=== PATIENT | female | born 1995 | race Caucasian/White ===

== ENCOUNTER 2024-05-20 15:36 | Inpatient (IN) | payer OTHER ==
[2024-05-20 16:24] LABS: RETICULOCYTES 1.82 % (0.5-1.5)
[2024-05-20 16:52] LABS: URIC ACID 4.3 mg/dL (2.6-7.2)
[2024-05-20] MEDS ORDERED: ACETAMINOPHEN INJECTION 100 ML ONE (19:52)
[2024-05-20] MEDS: ACETAMINOPHEN 1000 MG/100 ML BAG IVPB ONE (19:55)
[2024-05-20] MEDS ORDERED: BETAMET ACET/BETAMET NA PH 30 MG/5 ML VIAL ONE (22:25)
[2024-05-20] MEDS ORDERED: ceFAZolin SODIUM 1 GM VIAL ONE (22:26)
[2024-05-20] MEDS ORDERED: CEFAZOLIN SODIUM 2 GM VIAL ONE (22:28)
[2024-05-20] MEDS: CEFAZOLIN SODIUM 2 GM in DEXTROSE 5%-WATER 100 ML IVPB ONE (22:36)
[2024-05-20] MEDS: BETAMET ACET/BETAMET NA PH 30 MG/5 ML VIAL IM ONE (22:38)
[2024-05-20] MEDS: ELECTROLYTE-148 SOLN 1,000 ML IV SCH (23:00)
[2024-05-20 23:20] LABS: BASO % 0.8 % (0-2.0); EOS % 0.5 % (0-4.5); HEMATOCRIT 30.5 % (32.4-45.2); HEMOGLOBIN 10.5 GM/dL (10.7-15.3); LYMPH % 19.7 % (8-40); MCH 30.6 pg (25.7-33.7); MCHC 34.3 g/dl (32.0-36.0); MEAN CELL VOLUME 89.3 fl (80-96); MEAN PLT VOLUME 8.2 fl (7.5-11.1); MONO % 4.5 % (3.8-10.2); NEUT % 74.5 % (42.8-82.8); PLATELET COUNT 212 10^3/uL (134-434); RBC 3.42 M/mm3 (3.60-5.2); RDW 12.7 % (11.6-15.6)
[2024-05-20] MEDS ORDERED: MAGNESIUM 4GM/H20 - 4 GM/100 ML IVPB IVPB ONE (23:21)
[2024-05-20] MEDS: MAGNESIUM 4GM/H20 - 4 GM/100 ML IVPB IVPB ONE (23:26)
[2024-05-20 23:29] LABS: INR 1.05 (0.83-1.09); PROTHROMBIN TIME (PATIENT) 11.6 SEC (9.7-13.0)
[2024-05-20 23:31] LABS: ACTIVATED PTT 26.3 SECONDS (25.2-36.5)
[2024-05-20 23:48] LABS: POTASSIUM 3.4 mmol/L (3.5-5.1)
[2024-05-20 23:49] LABS: CALCIUM 8.2 mg/dL (8.5-10.1)
[2024-05-20 23:50] LABS: BLOOD UREA NITROGEN 6.6 mg/dL (7-18)
[2024-05-20 23:53] LABS: CREATININE 0.6 mg/dL (0.55-1.3)
[2024-05-20] MEDS ORDERED: MAGNESIUM SULFATE 20GM/500ML - 20 GM/500 ML INFUS.BAG ONE (23:54)
[2024-05-21] MEDS: MAGNESIUM SULFATE 20GM/500ML - 20 GM/500 ML INFUS.BAG IV SCH
[2024-05-21 01:16] VITALS: BMI 28.8
[2024-05-21 01:23] LABS: URINE APPEARANCE CLEAR; URINE BILIRUBIN NEGATIVE (NEGATIVE); URINE COLOR AMBER; URINE GLUCOSE (UA) NEGATIVE (NEGATIVE); URINE KETONE 4+ (NEGATIVE)
[2024-05-21] MEDS ORDERED: AMPICILLIN SODIUM 1 GM VIAL ONE ×3 (01:23→16:18)
[2024-05-21 01:24] LABS: URINE LEUK ESTERASE NEGATIVE (NEGATIVE); URINE NITRITE NEGATIVE (NEGATIVE); URINE PROTEIN NEGATIVE (NEGATIVE)
[2024-05-21] MEDS: diphenhydrAMINE HCL 25 MG CAPSULE (FP) PO ONE (01:31)
[2024-05-21] MEDS: IRON SUCROSE INJECTION 100 MG in SODIUM CHLORIDE 95 ML IVPB ONE (02:20)
[2024-05-21] MEDS: AMPICILLIN - 1 GM in SODIUM CHLORIDE 100 ML IVPB SCH (04:30)
[2024-05-21] MEDS ORDERED: SODIUM CHLORIDE 100 ML IVPB ONE ×2 (08:31→16:18)
[2024-05-21] MEDS ORDERED: MAGNESIUM SULFATE 20GM/500ML - 20 GM/500 ML INFUS.BAG ONE (10:01)
[2024-05-21 10:48] LABS: MAGNESIUM 5.2 mg/dL (1.8-2.4)
[2024-05-21] MEDS ORDERED: AZITHROMYCIN IVPB 500 MG/250 ML BAG IVPB ONE (11:38)
[2024-05-21] MEDS: AZITHROMYCIN IVPB 500 MG/250 ML BAG IVPB ONE (11:47)
[2024-05-21] MEDS: PRENATAL VITAMINS W/ FOLIC ACID TABLET (FP) PO SCH (11:55)
[2024-05-21] MEDS ORDERED: ACETAMINOPHEN INJECTION 100 ML ONE (12:28)
[2024-05-21] MEDS: ACETAMINOPHEN 1000 MG/100 ML BAG IVPB ONE (12:32)
[2024-05-21] MEDS: ASPIRIN 81 MG CHEWABLE TABLETS PO SCH (13:32)
[2024-05-21 19:12] VITALS: TEMP 98.2
[2024-05-21] MEDS ORDERED: ACETAMINOPHEN/CAFFEINE/BUTALBITAL 1 TAB PO PRN (19:46)
[2024-05-21] MEDS: BETAMET ACET/BETAMET NA PH 30 MG/5 ML VIAL IM ONE (20:27)
[2024-05-21 20:52] VITALS: BP 125/79; PULSE 78; RESP 18
== END 2024-05-21 20:48 | disposition home or self-care (01) | DRG 563 ==
LOC: JDEL 15:36 → JLDR 21:20 → UNDOADMOB 21:20 → INTOOBSV 21:20 → JLDR 22:01 → OBSVTOIN 05-21 14:00 → J3W 05-21 15:25
PROVIDERS: ADMIT Obstetrics & Gynecology; ATTEND Obstetrics & Gynecology
DX: O60.03 Preterm labor without delivery, third trimester (principal); Z3A.34 34 weeks gestation of pregnancy; G43.909 Migraine, unspecified, not intractable, without status migrainosus
CPT/HCPCS: 36415; 59025; 80048; 81003; 82570; 82977; 83010; 83735; 84156; 84450; 84460; 84550; 85025; 85032; 85045; 85610; 85730; 86780; 86850; 86900; 86901; 87086; 96372; G0378; J0131; J1756

== ENCOUNTER 2024-06-21 02:20 | Inpatient (IN) | payer OTHER ==
[2024-06-21] MEDS: LABETALOL HCL 200 MG TABLET (FP) PO ONE (03:00)
[2024-06-21] MEDS ORDERED: LABETALOL HCL 200 MG TABLET (FP) ONE (03:02)
[2024-06-21 03:24] VITALS: BMI 29.0
[2024-06-21] MEDS: ELECTROLYTE-148 SOLN 1,000 ML IV SCH (03:30)
[2024-06-21] MEDS ORDERED: AMPICILLIN SODIUM 2 GM VIAL ONE (03:33)
[2024-06-21] MEDS: AMPICILLIN - 2 GM in SODIUM CHLORIDE 100 ML IVPB ONE (03:50)
[2024-06-21] MEDS: CITRIC ACID/SODIUM CITRATE 30 ML UNIT-DOSE CUP PO ONE (03:50)
[2024-06-21] MEDS: LABETALOL HCL 5 MG/1 ML (100MG/20 ML VIAL) IVPUSH ONE (03:57)
[2024-06-21] MEDS ORDERED: LABETALOL HCL 5 MG/1 ML (100MG/20 ML VIAL) IVPUSH PRN ×2 (03:57)
[2024-06-21] MEDS ORDERED: WITCH HAZEL 50% (TUCKS) 40 PAD/JAR PAD TP PRN (04:00)
[2024-06-21] MEDS ORDERED: METHYLERGONOVINE MALEATE 0.2 MG/1 ML AMP IM PRN (04:00)
[2024-06-21] MEDS ORDERED: BENZOCAINE 28 GM HEMORRHOIDAL OINTMENT TP PRN (04:00)
[2024-06-21] MEDS ORDERED: BENZOCAINE 20% 57 GM BOTTLE TP PRN (04:00)
[2024-06-21] MEDS ORDERED: morphine SULFATE/PF 1 MG/2 ML (2cc Syringe - QUVA) ONE (04:05)
[2024-06-21 04:08] LABS: ABSOLUTE IMMATURE GRANULOCYTES 0.03 x10^3/uL (0.0-0.031); BASOPHILS # 0.02 x10^3/uL (0.01-0.08); EOSINOPHIL % 0.6 % (0.7-5.8); EOSINOPHILS # 0.04 x10^3/uL (0.04-0.36); HEMATOCRIT 33.6 % (34.1-44.9); HEMOGLOBIN 11.3 g/dL (11.2-15.7); MCHC 33.6 g/dl (32.2-35.5); MEAN CELL VOLUME 89.8 fl (79.4-94.8); MEAN PLT VOLUME 9.9 fl (9.4-12.3); MONOCYTE # 0.53 x10^3/uL (0.24-0.86); MONOCYTE % 7.3 % (4.7-12.5); PLATELET COUNT 218 x10^3/uL (182-369); RDW 12.6 % (12.1-16.5)
[2024-06-21 04:11] LABS: INR 0.99 (0.83-1.09); POTASSIUM 4.1 mmol/L (3.5-5.1); PROTHROMBIN TIME (PATIENT) 10.8 SEC (9.7-13.0)
[2024-06-21 04:12] LABS: BLOOD UREA NITROGEN 7.3 mg/dL (7-18)
[2024-06-21 04:13] LABS: CALCIUM 9.1 mg/dL (8.5-10.1)
[2024-06-21 04:14] LABS: ACTIVATED PTT 26.9 SECONDS (25.2-36.5)
[2024-06-21 04:16] LABS: CREATININE 0.6 mg/dL (0.55-1.3)
[2024-06-21 04:18] LABS: BILIRUBIN,TOTAL 0.3 mg/dL (0.2-1); TOT PROT 6.7 g/dl (6.4-8.2)
[2024-06-21] MEDS ORDERED: ONDANSETRON 4 MG/2 ML VIAL IVPUSH PRN (04:26)
[2024-06-21 05:41] LABS: CORD HCO3 18.9 mmHg (20-29); CORD PCO2 46.6 mmHg (30-78); CORD pH 7.225 (7.14-7.44)
[2024-06-21 05:43] LABS: CORD BASE EXCESS -2.6 mmol/L (0-2); CORD HCO3 25.1 mmHg (20-29); CORD PCO2 54.1 mmHg (30-78); CORD pH 7.284 (7.14-7.44)
[2024-06-21] MEDS: OXYTOCIN 20 UNITS in 0.9% NS 20 UNIT/1,000 ML INFUS.BAG IV SCH (05:55)
[2024-06-21] MEDS ORDERED: LABETALOL HCL 200 MG TABLET (FP) PO SCH (06:00)
[2024-06-21] MEDS: ACETAMINOPHEN 1000 MG/100 ML BAG IVPB ONE (06:00)
[2024-06-21] MEDS ORDERED: OXYTOCIN 20 UNITS in 0.9% NS 20 UNIT/1,000 ML INFUS.BAG IV ONE (06:26)
[2024-06-21] MEDS ORDERED: ACETAMINOPHEN INJECTION 100 ML ONE (06:38)
[2024-06-21] MEDS: LABETALOL HCL 200 MG TABLET (FP) PO SCH (08:03)
[2024-06-21] MEDS: CEFAZOLIN 1 GM in DEXTROSE 5%-WATER - 50 ML IVPB SCH (10:00)
[2024-06-21] MEDS: PRENATAL VITAMINS W/ FOLIC ACID TABLET (FP) PO SCH (10:03)
[2024-06-21] MEDS: FERROUS SO4 325 MG TABLET (FP) PO SCH (10:04)
[2024-06-21] MEDS ORDERED: oxyCODONE HCL 5 MG TABLET PO PRN ×2 (16:01)
[2024-06-21] MEDS: IBUPROFEN 600 MG TABLET (FP) PO PRN (17:24)
[2024-06-21] MEDS: ACETAMINOPHEN 325 MG TABLET (FP) PO PRN (18:23)
[2024-06-21] MEDS: AZITHROMYCIN IVPB 500 MG in DEXTROSE 5%-WATER - 250 ML IVPB ONE (18:23)
[2024-06-21] MEDS ORDERED: ACETAMINOPHEN 1000 MG/100 ML BAG IVPB PRN (18:31)
[2024-06-21 18:57] VITALS: RESP 18
[2024-06-21] MEDS: SIMETHICONE 80 MG TAB.CHEW (FP) PO PRN (22:12)
[2024-06-22] MEDS: ELECTROLYTE-148 SOLN 1,000 ML IV SCH (00:36)
[2024-06-22] MEDS: ELECTROLYTE-148 SOLN 500 ML IV ONE (00:37)
[2024-06-22] MEDS ORDERED: BISACODYL 10 MG SUPP.RECT RC PRN (04:01)
[2024-06-22 07:59] LABS: ABSOLUTE IMMATURE GRANULOCYTES 0.04 x10^3/uL (0.0-0.031); BASOPHILS # 0.01 x10^3/uL (0.01-0.08); EOSINOPHIL % 0.1 % (0.7-5.8); EOSINOPHILS # 0.01 x10^3/uL (0.04-0.36); HEMATOCRIT 24.6 % (34.1-44.9); HEMOGLOBIN 8.1 g/dL (11.2-15.7); MCHC 32.9 g/dl (32.2-35.5); MEAN CELL VOLUME 92.8 fl (79.4-94.8); MEAN PLT VOLUME 9.8 fl (9.4-12.3); MONOCYTE # 0.61 x10^3/uL (0.24-0.86); MONOCYTE % 8.1 % (4.7-12.5); PLATELET COUNT 137 x10^3/uL (182-369); RDW 12.9 % (12.1-16.5)
[2024-06-23 06:11] VITALS: PULSE 73
[2024-06-23 09:24] VITALS: BP 133/83; TEMP 98.2
== END 2024-06-23 12:40 | disposition home or self-care (01) | DRG 540 ==
LOC: JLDR 02:20 → J3W 08:41
PROVIDERS: ADMIT Obstetrics & Gynecology; ATTEND Obstetrics & Gynecology
PROC: 10D00Z1 Extraction of Products of Conception, Low, Open Approach (ICD-10-PCS; principal; 2024-06-22)
DX: O34.219 Maternal care for unspecified type scar from previous cesarean delivery (principal); O13.4 Gestational [pregnancy-induced] hypertension without significant proteinuria, complicating childbirth; Z3A.38 38 weeks gestation of pregnancy; Z37.0 Single live birth
CPT/HCPCS: 36415; 36600; 59409; 80053; 82803; 85025; 85610; 85730; 86780; 86850; 86900; 86901; 88307-TC; 94010; J0131